=== PATIENT | male | born 1995 | race Two or more races ===

== ENCOUNTER 2018-02-09 17:37 | Emergency (ER) | payer OTHER ==
[~2018-02-09] VITALS: Ht 152.4 cm; Wt 45.9 kg
[2018-02-09] MEDS ORDERED: IBUPROFEN 800 MG TABLET PO ONE (20:45)
[2018-02-09 22:22] VITALS: BP 111/74
== END 2018-02-09 22:30 | disposition home or self-care (01) ==
LOC: EMS 17:39
DX: J06.9 Acute upper respiratory infection, unspecified (principal); R59.1 Generalized enlarged lymph nodes; F17.200 Nicotine dependence, unspecified, uncomplicated
CPT/HCPCS: 87430; 99283